=== PATIENT | female | born 1960 | race Caucasian/White ===

== ENCOUNTER 2025-01-21 16:59 | Emergency (ER) | payer BC ==
[2025-01-21 17:07] VITALS: TEMP 98.4
--- NOTE | 2025-01-21 17:12 | ED ---
Chest Pain HPI - General Chief Complaint: Chest Pain Stated Complaint: Chest Pain Time Seen by Provider: 01/21/25 17:11 Source: patient, RN notes reviewed, old records reviewed Mode of arrival: ambulatory Limitations: no limitations - History of Present Illness Initial Comments: This is a 64 female to the ER for chest pain today right-sided chest pain that has been intermittent for a few days to a week. It is on the right side with diminished ability to breathe feels like she gets short of breath easier pain when she takes a deep breath. Patient has history of right mastectomy. She is not having any left-sided pain history of high blood pressure no travels no sick contacts no fever cough or congestion. Patient is having persistent right-sided chest pain currently going to her back MD Complaint: chest pain -: days(s) Onset: during rest, during exertion, awoke with symptoms Pain Radiation: back Severity: moderate Severity scale (1-10): 7 Quality: sharp Consistency: intermittent Improves With: nothing Worsens With: exertion Context: recent illness Anginal Symptoms: nausea, dyspnea Treatments Prior to Arrival: none - Related Data Home Medications Medication Instructions Recorded Confirmed No Known Home Medications 01/21/25 01/21/25 Allergies Allergy/AdvReac Type Severity Reaction Status Date / Time No Known Allergies Allergy Verified 01/21/25 17:23 Review of Systems ROS Statement: Those systems with pertinent positive or pertinent negative responses have been documented in the HPI. ROS Other: All systems not noted in ROS Statement are negative. EKG Findings - EKG Comments: EKG Findings:: EKG is sinus 74 WV 154 QRS 82 QTc 380 - EKG Results: EKG: interpreted by STEVE Past Medical History Past Medical History: Hyperlipidemia, Hypertension Additional Past Surgical History / Comment(s): nastectomy right breast Smoking Status: Never smoker General Exam Limitations: no limitations General appearance: alert, in no apparent distress Head exam: Present: atraumatic, normocephalic, normal inspection Eye exam: Present: normal appearance, PERRL, EOMI. Absent: scleral icterus, conjunctival injection, periorbital swelling ENT exam: Present: normal exam, mucous membranes moist Neck exam: Present: normal inspection. Absent: tenderness, meningismus, lymphadenopathy Respiratory exam: Present: normal lung sounds bilaterally. Absent: respiratory distress, wheezes, rales, rhonchi, stridor Cardiovascular Exam: Present: regular rate, normal rhythm, normal heart sounds. Absent: systolic murmur, diastolic murmur, rubs, gallop, clicks GI/Abdominal exam: Present: soft, normal bowel sounds. Absent: distended, tenderness, guarding, rebound, rigid Extremities exam: Present: normal inspection, full ROM, normal capillary refill. Absent: tenderness, pedal edema, joint swelling, calf tenderness Back exam: Present: normal inspection Neurological exam: Present: alert, oriented X3, CN II-XII intact Psychiatric exam: Present: normal affect, normal mood Skin exam: Present: warm, dry, intact, normal color. Absent: rash Course Vital Signs 01/21/25 01/21/25 01/21/25 17:05 18:00 20:17 Temperature 98.4 F Pulse Rate 75 72 77 Respiratory 20 18 17 Rate Blood Pressure 145/71 143/69 139/80 O2 Sat by Pulse 98 99 95 Oximetry - Reevaluation(s) Reevaluation #1: 01/21/25 17:45 Medical records reviewed Reevaluation #2: Patient's symptoms continue to improve here in the ER Reevaluation #3: Patient informed of results questions answered Reevaluation #4: Was pt. sent in by a medical professional or institution (, PA, [facility], urgent care, hospital, or correction...) When possible be specific @ -no Did you speak to anyone other than the patient for history (EMS, parent, family, police, friend...)? What history was obtained from this source @ -no Did you review nursing and triage notes (agree or disagree)? Why? @ -agree Are old charts reviewed (outside hosp., previous admission, EMS record, old EKG, old radiological studies, urgent care reports/EKG's, correction records)? Report findings @ -yes Differential Diagnosis (chest pain, altered mental status, abdominal pain women, abdominal pain men, vaginal bleeding, weakness, fever, dyspnea, syncope, headache, dizziness, GI bleed, back pain, seizure, CVA, palpatations, mental health, musculoskeletal)? @ -prior EKG interpreted by me (3pts min.). @ -yes X-rays interpreted by me (1pt min.). @ -no CT interpreted by me (1pt min.). @ -yes negative for acute disease U/S interpreted by me (1pt. min.). @ -no What testing was considered but not performed or refused? (CT, X-rays, U/S, labs)? Why? @ -none What meds were considered but not given or refused? Why? @ -none Did you discuss the management of the patient with other professionals (professionals i.e. , PA, [employer], lab, RT, psych nurse, adoption social worker, rotary furnace tender, teacher, security officer, assisted living manager)? Give summary @ -no Was smoking cessation discussed for >3mins.? @ -no Was critical care preformed (if so, how long)? @ -no Were there social determinants of health that impacted care today? How? (Homelessness, low income, unemployed, alcoholism, drug addiction, transportation, low edu. Level, literacy, decrease access to med. care, correction, rehab)? @ -none Was there de-escalation of care discussed even if they declined (Discuss DNR or withdrawal of care, Hospice)? DNR status @ -no What co-morbidities impacted this encounter? (DM, HTN, Smoking, COPD, CAD, Cancer, CVA, ARF, Chemo, Hep., AIDS, mental health diagnosis, sleep apnea, morbid obesity)? @ -none Was patient admitted / discharged? Hospital course, mention meds given and route, prescriptions, significant lab abnormalities, going to OR and other pertinent info. @ - 64 female with nonspecific chest pain CTA chest negative here in the ER symptoms otherwise resolved patient can be discharged home Discharged Undiagnosed new problem with uncertain prognosis? @ -no Drug Therapy requiring intensive monitoring for toxicity (Heparin, Nitro, Insulin, Cardizem)? @ -no Were any procedures done? @ -no Diagnosis/symptom? @ -Chest pain Acute, or Chronic, or Acute on Chronic? @ -Acute Uncomplicated (without systemic symptoms) or Complicated (systemic symptoms)? @ -Complicated Side effects of treatment? @ -no Exacerbation, Progression, or Severe Exacerbation? @ -exacerbation Poses a threat to life or bodily function? How? (Chest pain, [place], [place], pneumonia, PE, COPD, DKA, ARF, appy, cholecystitis, CVA, Diverticulitis, Homicidal, Suicidal, threat to staff... and all critical care pts) @ -yes with chest pain Reevaluation #5: Differential Chest Pain: Stable Angina, Unstable Angina, STEMI, NSTEMI Aortic Dissection, Pneumothorax, Musculoskeletal, Esophageal Spasm GERD, Cholecystitis, Pancreatitis, Zoster, this is not meant to be an all-inclusive list. Differential Dyspnea: Coronary syndrome, arrhythmia, tamponade, asthma, COPD, pulmonary embolism, pneumonia, pneumothorax, pulmonary effusion, anaphylaxis, diabetic ketoacidosis, flailed chest, pulmonary contusion, diaphragmatic rupture, anemia, neuromuscular, this is not meant to be an all-inclusive list. Chest Pain MDM - MDM 64 female with nonspecific chest pain CTA chest negative here in the ER symptoms otherwise resolved patient can be discharged home Disposition Clinical Impression: Chest pain, Atypical chest pain Disposition: HOME SELF-CARE Condition: Fair Instructions (If sedation given, give patient instructions): Chest Pain (ED) Is patient prescribed a controlled substance at d/c from ED?: No Referrals: Nonstaff,Physician [Primary Care Provider] - 1-2 days Time of Disposition: 20:00
[2025-01-21 17:38] LABS: Basophils # (A) 0.05 10*3/uL (0.00-0.10); Basophils % (A) 0.5 %; Eosinophils # (A) 0.01 10*3/uL (0.04-0.35); Eosinophils % (A) 0.1 %; HCT 36.2 % (37.2-46.3); HGB 12.1 g/dL (12.0-15.0); Lymphocytes # (A) 1.45 10*3/uL (0.90-5.00); Lymphocytes % (A) 14.1 %; MCH 27.9 pg (27.0-32.0); MCHC 33.4 g/dL (32.0-37.0); MCV 83.6 fL (80.0-97.0); Mean Platelet Volume 9.5 fL (9.5-12.2); Monocytes # (A) 1.05 10*3/uL (0.20-1.00); Monocytes % (A) 10.2 %; Neutrophils % (A) 74.8 %; Platelet Count 331 10*3/uL (140-440); RBC 4.33 10*6/uL (4.10-5.20); RDW 12.5 % (11.5-14.5); WBC 10.29 10*3/uL (4.50-10.00)
[2025-01-21 17:53] LABS: ALT 32 U/L (4-34); AST 33 U/L (14-36); African American GFR (CKD) 90 (>60 ml/min/1.73 sqM); Albumin 4.2 g/dL (3.5-5.0); Alkaline Phosphatase 69 U/L (38-126); Anion Gap 9 mmol/L; Blood Urea Nitrogen 20 mg/dL (7-17); Calcium 9.1 mg/dL (8.4-10.2); Carbon Dioxide 27 mmol/L (22-30); Chloride 100 mmol/L (98-107); Glucose 106 mg/dL (74-99); Lipase 59 U/L (23-300); Non-African American GFR(CKD) 78 (>60 ml/min/1.73 sqM); Potassium 4.3 mmol/L (3.5-5.1); Sodium 136 mmol/L (137-145); Total Bilirubin 0.9 mg/dL (0.2-1.3); Total Protein 7.4 g/dL (6.3-8.2)
[2025-01-21 18:01] LABS: NT-Pro-B-Type Natriuretic Pept 772 pg/mL
[2025-01-21 18:05] LABS: INR 0.9 (<1.2); Partial Thromboplastin Time 24.9 sec (22.0-30.0); Prothrombin Time 10.3 sec (10.0-12.5)
[2025-01-21] MEDS: KETOROLAC 15 MG/ML 1 ML VIAL IVP STA (18:07)
[2025-01-21] MEDS: SODIUM CHLORIDE 0.9% 1,000 ML IV ONE (18:08)
--- NOTE | 2025-01-21 19:30 | CT ---
EXAMINATION TYPE: CT angio chest DATE OF EXAM: 01/21/2025 COMPARISON: NONE CLINICAL INDICATION: Female, 64 years old with history of pe,cp, positive dimer, TECHNIQUE: CTA scan of the thorax is performed with IV Contrast, patient injected with 63 mL of Isovue 370, pulm onary embolism protocol. MIP Images are created on CT scanner and reviewed. CT DLP: 261.5 mGycm. Automated Exposure Control for Dose Reduction was Utilized. FINDINGS: LUNGS: There is 2 to 3 mm peripheral right lower lobe nodule axial image 73. There is mild posterior right basilar linear scarring and/or atelectasis. There is mild linear scarring in lingula. No greate r than 5 mm noncalcified pulmonary nodules. HEART: Mild cardiomegaly. [id number] coronary artery calcifications are present. MEDIASTINUM: Suboptimal study with most prominent contrast in the SVC but no convincing CT evidence f or acute pulmonary embolism. Main pulmonary artery measures 3.0 cm in diameter suggesting underlying pulmonary artery hypertension. There is nonspecific enlarged right paratracheal 1.9 x 1.4 cm lymph no de image 43. Neoplasm cannot be excluded. Consider PET-CT follow-up. No pericardial effusion is se en. OTHER: Small sized hiatal hernia. Bilateral breast implants are noted. Subcentimeter low dense lesion in the left hepatic lobe is too small to further characterize but presumed benign. Scoliotic curvatu re is redemonstrated. IMPRESSION: 1. No CT evidence for acute pulmonary embolism. 2. No suspicious acute pulmonary process. 3. Enlarged mediastinal lymph nodes, neoplasm cannot be excluded. Nonemergent follow-up advised. [facility], , 01/21/2025 7:28 PM
[2025-01-21 20:18] VITALS: BP 139/80; PULSE 77; RESP 17
== END 2025-01-21 20:18 | disposition home or self-care (01) ==
LOC: EC 16:59
DX: R07.89 Other chest pain (principal)
CPT/HCPCS: 93005; 85379; 83880; 80053; 83690; 83735; 84484; 85025; 85610; 85730; 71275; 99285; 96374; 96361; J1885; Q9967